=== PATIENT | male | born 1960 | race Caucasian/White ===

== ENCOUNTER → 2017-02-19 | Outpatient (CLI) | payer BC ==
--- NOTE | 2017-02-20 12:37 | RAD ---
EXAM: Right elbow 2 views. HISTORY: Right elbow pain after injury. COMPARISON: None. FINDINGS: No fractures are identified. There are tiny osteophytes along the coronoid and olecranon. Joint spaces and alignment are maintained. There is no joint effusion. There is mild ossification at the triceps insertion. IMPRESSION: 1. No fracture or malalignment. Mild humeral ulnar osteoarthritis.
== END | disposition home or self-care (01) ==
LOC: RAD 17:41
PROVIDERS: ATTEND Physician Assistant
DX: M19.021 Primary osteoarthritis, right elbow (principal)
CPT/HCPCS: 73070

== ENCOUNTER → 2019-07-10 | Outpatient (CLI) | payer BC ==
--- NOTE | 2019-07-10 13:58 | RAD ---
Study: FINGER(S) RIGHT Indication: Right third finger pain. Comparison: None. Findings: No acute osseous abnormality. No traumatic malalignment. No advanced arthrosis. Impression: No acute osseous abnormality seen throughout the hand or particularly involving the third digit at the site of reported pain. Electronically signed by: CHARLINE AMRQUEZ MD (07/10/2019 1:56 PM) [facility]
== END | disposition home or self-care (01) ==
LOC: PMG 10:24
PROVIDERS: ATTEND Physician Assistant Medical
DX: R22.31 Localized swelling, mass and lump, right upper limb (principal)
CPT/HCPCS: 73140

== ENCOUNTER → 2020-06-14 | Outpatient (CLI) | payer BC ==
--- NOTE | 2020-06-14 16:56 | RAD ---
Examination: 3 views of the left shoulder HISTORY: History of left shoulder pain after injury COMPARISON: None available FINDINGS: The humerus head is within the glenoid. Mild joint space loss identified in the glenohumeral joint. IMPRESSION: 1. Mild degenerative changes acromioclavicular joint. No acute osseous findings. Electronically signed by: Kwabena Mosley MD (06/14/2020 4:53 PM) [id number]
== END ==
LOC: RAD 15:39
PROVIDERS: ATTEND Physician Assistant
DX: M19.012 Primary osteoarthritis, left shoulder (principal)
CPT/HCPCS: 73030